=== PATIENT | female | born 1950 | race Caucasian/White ===

== ENCOUNTER → 2016-11-03 | Outpatient (CLI) | payer MEDICARE, BC | LOC: GMAB 14:09 | PROVIDERS: ATTEND Family Medicine | DX: R30.0 Dysuria (principal); E03.9 Hypothyroidism, unspecified ==

== ENCOUNTER → 2016-12-29 | Outpatient (CLI) | payer MEDICARE ==
--- NOTE | 2017-01-04 15:46 | MAM ---
EXAM DESCRIPTION: Diagnostic Mammo,Left CLINICAL HISTORY: 66 years, Female, 6 MOS F/U COMPARISON: April 13, 2016 screening mammogram in April 30, 2016 diagnostic mammogram FINDINGS: CAD used. Scattered fibroglandular tissue stable upper posterior lateral predominantly distribution. Areas increased density lowers sensitivity. The scattered microcalcifications identified in April 2016 examination are evaluated with magnification views. These appear about the same and not significantly different IMPRESSION: Probably benign mammogram. Stable appearance of microcalcifications in the outer left breast. Recommend reevaluation in about four months which would correspond to time of annual screening. Suggest that this be a bilateral diagnostic screening mammogram. Category three probably benign: Short-term follow-up recommended in about four months Electronically signed by: Terrell Schaffer MD 01/04/2017 2:42 PM CDT
== END ==
LOC: MAMMO 10:46
PROVIDERS: ATTEND Family Medicine
DX: R92.8 Other abnormal and inconclusive findings on diagnostic imaging of breast (principal)
CPT/HCPCS: 77065; G0206

== ENCOUNTER 2017-02-14 21:58 | Emergency (ER) | payer MEDICARE ==
--- NOTE | 2017-02-14 22:10 | ED.PDOC ---
History of Present Illness - General Chief Complaint: Neuro Symptoms/Deficits Stated Complaint: AMS Time Seen by Provider: 02/14/17 22:08 Source: RN notes reviewed, EMS notes reviewed Exam Limitations: clinical condition, physical impairment - History of Present Illness Initial Comments: Fernanda Vallejo 66 y/o female on chronic pain medication for chronic pain syndrome was found by ems at her house kitchen unresponsive covered with feces after they were called up by a family member that she have not responded to phone calls. According to niece she was in her usual normal state last when she visited her doing her normal activities and was left by herself . Today the transport truck driver out of town called up her niece regarding the situation then ems was called.Also fire dept.got called after doors to the house are locked and opened it. Timing/Duration: other - 3 days Improving Factors: nothing Worsening Factors: nothing Associated Symptoms: other - agitated and screaming Allergies/Adverse Reactions: Allergies NO KNOWN ALLERGY Allergy (Verified 02/14/17 22:16) Home Medications: Ambulatory Orders Atorvastatin Calcium [Lipitor] 20 mg PO DAILY 02/15/17 Baclofen 20 mg PO PRN PRN 02/15/17 BuPROPion XL [Wellbutrin XL] 150 mg PO DAILY 02/15/17 Coenzyme Q10 (Ubidecarenone) [Coq-10] 200 mg PO DAILY 02/15/17 Coenzyme Q10 (Ubidecarenone) [Coq-10] 400 mg PO BEDTIME 02/15/17 Cranberry (Vaccinium Macrocarp [Cranberry Concentrate] 500 mg PO BEDTIME Flaxseed (Linseed) [Flaxseed Oil] 1 cap PO DAILY 02/15/17 Gabapentin 300 mg PO QID 02/15/17 Ginkgo Biloba 120 mg PO BID 02/15/17 Fuiiguwtfrc-Msdzftfbmjj-Ovf C- [Glucosamine Chondroitin 1] 1 cap PO BID Hydrochlorothiazide 25 mg PO DAILY 02/15/17 Levothyroxine Sodium [Synthroid] 88 mcg PO DAILY 02/15/17 Lisinopril 10 mg PO BEDTIME 02/15/17 Melatonin 30 mg PO BEDTIME 02/15/17 Meloxicam 15 mg PO DAILY 02/15/17 Metoprolol Succinate [Metoprolol Succinate ER] 25 mg PO DAILY 02/15/17 Misc Natural Products [Adrenal] 80 mg PO DAILY 02/15/17 Nitroglycerin 0.4 mg Tab [Nitrostat] 0.4 mg SL PRN PRN 02/15/17 Phenytoin Sodium Extended 100 mg PO PRN PRN 02/15/17 Potassium Chloride [K-Tab] 10 meq PO DAILY 02/15/17 Pregabalin [Lyrica] 50 mg PO DAILY@0700 02/15/17 Primidone 100 mg PO BEDTIME 02/15/17 Progesterone Micronized [Progesterone] 100 mg PO DAILY 02/15/17 Spironolactone 100 mg PO DAILY 02/15/17 Tapentadol HCl [Nucynta ER] 100 mg PO BID 02/15/17 Tapentadol HCl [Nucynta] 50 mg PO PRN PRN 02/15/17 Thyroid [Nature-Throid] 81.25 mg PO DAILY 02/15/17 Valerian (Valeriana Officinali [Valerian Root Plus] 3 cap PO BEDTIME 02/15/17 Review of Systems - Review of Systems Unable to Obtain Due To: clinical condition - mental state Past Medical History (General) - Patient Medical History Hx Seizures: Yes - per spouse Hx Other PMH: Yes - chronic pain Surgical History: other - gastic bypass,right shoulder,hysterectomy,lumbar spine Family Medical History - Family History Mother Family History: Unknown Physical Exam - Physical Exam General Appearance: Other - agitated ,screaming ,non verbal,feces,unkempt Eye Exam: bilateral other - pupils equal reactive ENT Exam: normal ENT inspection, TMs normal, pharynx normal Neck: non-tender, supple Respiratory: chest non-tender, lungs clear, normal breath sounds, no respiratory distress Cardiovascular/Chest: normal peripheral pulses, regular rate, rhythm, no murmur Peripheral Pulses: radial,right: 2+, radial,left: 2+ Gastrointestinal/Abdominal: normal bowel sounds, soft, no organomegaly Back Exam: normal inspection, no vertebral tenderness Mental Status: unresponsive, other - screaming /agitated grader patrol Exam: PERRL Skin Exam: normal color, warm/dry, other - multiple skin bruising and abrasions Comments: sarah coma scale-pain 2 v-3 p-5 =10 Progress - Progress Progress: 02/15/17 02:30 Vital Signs - 8 hr 06/07/2302/14/17 02/15/17 21:58 23:41 00:46 Temperature 98.4 F Pulse Rate [ 76 72 80 monitor] Respiratory 20 18 18 Rate Blood Pressure 121/79 140/51 114/70 [Left Arm] O2 Sat by Pulse 100 96 94 L Oximetry 02/15/17 01:34 Temperature Pulse Rate [ 102 H monitor] Respiratory 16 Rate Blood Pressure 129/58 [Left Arm] O2 Sat by Pulse 100 Oximetry 02/14/17 22:15 EKG STAT 02/14/17 23:20 BLOOD CULTURE Stat 02/15/17 01:29 CTA Chest [CT] Stat 02/15/17 01:30 Cervical Spine [CT] Stat Knee,Right 2 or More Views [RAD] Stat Laboratory Results WBC 12.7 K/mm3 (4.8-10.8) H 02/14/17 23:20 RBC 4.91 M/mm3 (4.20-5.40) 02/14/17 23:20 Hgb 14.7 gm/dL (12.0-16.0) 02/14/17 23:20 Hct 45.0 % (36.0-47.0) 02/14/17 23:20 MCV 91.6 fl (81.0-99.0) 02/14/17 23:20 MCH 30.0 pg (27.0-31.0) 02/14/17 23:20 MCHC 32.7 g/dL (33.0-37.0) L 02/14/17 23:20 RDW 12.9 % (11.5-14.5) 02/14/17 23:20 Plt Count 178 K/mm3 (130-400) 02/14/17 23:20 MPV 9.6 fl (7.40-10.4) 02/14/17 23:20 Absolute Neuts (auto) 11.00 K/uL (1.8-6.8) H 02/14/17 23:20 Absolute Lymphs (auto) 0.80 K/uL (1.0-3.4) L 02/14/17 23:20 Absolute Monos (auto) 0.80 K/uL (0.2-0.8) 02/14/17 23:20 Absolute Eos (auto) 0.00 K/uL (0.0-0.4) 02/14/17 23:20 Absolute Basos (auto) 0.00 K/uL (0.0-0.1) 02/14/17 23:20 Neutrophils % 87.0 % (42.0-78.0) H 02/14/17 23:20 Lymphocytes % 6.3 % (20.0-50.0) L 02/14/17 23:20 Monocytes % 6.1 % (2.0-9.0) 02/14/17 23:20 Eosinophils % 0.2 % (1.0-5.0) L 02/14/17 23:20 Basophils % 0.4 % (0.0-2.0) 02/14/17 23:20 PT 11.5 SECONDS (9.4-12.5) 02/14/17 23:20 INR 1.020 02/14/17 23:20 PTT (SP) 28.8 SECONDS (25.1-36.5) 02/14/17 23:20 D-Dimer, Quantitative 1092 ng/mL (0-230) H* 02/14/17 23:20 Sodium 141 mmol/L (135-145) 02/14/17 23:20 Potassium 4.2 mmol/L (3.6-5.0) 02/14/17 23:20 Chloride 110 mmol/L (101-111) 02/14/17 23:20 Carbon Dioxide 23 mmol/L (21-31) 02/14/17 23:20 Anion Gap 12.2 (12-18) 02/14/17 23:20 BUN 19 mg/dL (7-18) H 02/14/17 23:20 Creatinine 0.77 mg/dL (0.6-1.3) 02/14/17 23:20 BUN/Creatinine Ratio 24.7 (10-20) H 02/14/17 23:20 Random Glucose 134 mg/dL (70-105) H 02/14/17 23:20 Serum Osmolality 285.5 mOsm/L (275-295) 02/14/17 23:20 Lactic Acid 1.9 mmol/L (0.5-2.2) 02/14/17 23:10 Calcium 9.1 mg/dL (8.4-10.2) 02/14/17 23:20 Magnesium 1.9 mg/dL (1.8-2.5) 02/14/17 23:20 Total Bilirubin 0.8 mg/dL (0.2-1.0) 02/14/17 23:20 Direct Bilirubin 0.2 mg/dL (0-0.2) 02/14/17 23:20 Indirect Bilirubin 0.6 mg/dL (0.2-0.8) 02/14/17 23:20 AST 75 IU/L (10-42) H 02/14/17 23:20 ALT 34 IU/L (10-60) 02/14/17 23:20 Alkaline Phosphatase 147 IU/L (42-121) H 02/14/17 23:20 Creatine Kinase 2348 IU/L (26-140) H* 02/14/17 23:20 CK-MB (CK-2) 34.8 ng/mL (0.0-4.4) H* 02/14/17 23:20 CK-MB (CK-2) % 1.48 % (0.0-4.3) 02/14/17 23:20 Troponin I < 0.02 ng/mL (0.01-0.05) 02/14/17 23:20 B-Natriuretic Peptide 115.0 pg/ml (0-100) H 02/14/17 23:20 Serum Total Protein 6.8 gm/dL (6.4-8.2) 02/14/17 23:20 Albumin 3.9 g/dl (3.2-5.5) 02/14/17 23:20 Urine Color Yellow (Yellow) 02/14/17 22:25 Urine Appearance Clear (Clear) 02/14/17 22:25 Urine pH 5.5 (4.5-7.8) 02/14/17 22:25 Ur Specific [place] 1.010 (1.005-1.030) 02/14/17 22:25 Urine Protein Negative mg/dL 02/14/17 22:25 Urine Glucose (UA) Negative mg/dL (Negative) 02/14/17 22:25 Urine Ketones 15 mg/dL (NEGATIVE) H 02/14/17 22:25 Urine Blood Negative (Negative) 02/14/17 22:25 Urine Nitrite Negative 02/14/17 22:25 Urine Bilirubin Negative (NEGATIVE) 02/14/17 22:25 Urine Urobilinogen 0.2 mg/dL (0.2-1.0) 02/14/17 22:25 Ur Leukocyte Esterase Negative (Negative) 02/14/17 22:25 Urine RBC 0-1 /hpf 02/14/17 22:25 Urine WBC 0-1 /hpf 02/14/17 22:25 Ur Epithelial Cells 0-1 /hpf 02/14/17 22:25 Urine Bacteria 0 02/14/17 22:25 Salicylates mg/dL (0-29.9) 02/14/17 23:20 Urine Opiates Screen Negative ng/mL (2000) 02/14/17 23:20 Acetaminophen < 10.0 ug/mL (10.0-30.0) L 02/14/17 23:20 Urine Barbiturates Positive ng/mL (200) H 02/14/17 23:20 Phenytoin < 0.5 ug/mL (10.0-20.0) L 02/14/17 23:20 Ur Phencyclidine Scrn Negative ng/mL (25) 02/14/17 23:20 U Amphetamin/Meth Scrn Negative ng/mL (1000) 02/14/17 23:20 U Benzodiazepines Scrn Negative ng/mL (200) 02/14/17 23:20 U Cocaine Metab Screen Negative ng/mL (300) 02/14/17 23:20 U Cannabinoids Screen Negative ng/mL (50) 02/14/17 23:20 Ethyl Alcohol < 5.80 mg/dL (0-79) 02/14/17 23:20 - EKG/XRAY/CT EKG: Sinus, no ST T wave changes Comments: Heart rate 77 XRAY: humerus left-no fracture - no fracture/radiologist CT: CTA-no PE pulmonary main artery;c-spine-no fracture CT Ordered: Yes - head-no acute abormalities Departure - Departure Clinical Impression: Chronic pain following surgery or procedure, Abrasions of multiple sites Altered mental status Qualifiers: Altered mental status type: coma Coma depth: Sarah coma 9-12 Qualified Code(s ): R40.242 - [place] coma scale score 9-12 Overdose Qualifiers: Encounter type: initial encounter Injury intent: undetermined intent Qualified Code(s): T50.904A - Poisoning by unspecified drugs, medicaments and biological substances, undetermined, initial encounter Rhabdomyolysis Qualifiers: Rhabdomyolysis type: non-traumatic Qualified Code(s): M62.82 - Rhabdomyolysis Time of Disposition: 04:54 - D/W Dr. Vikas Gardiner -ER MD FORBES Disposition: Transfer to Hospital Condition: Fair Referrals: Javier Varghese MD [Primary Care Provider] - 1-2 Weeks Home Medications: Ambulatory Orders Atorvastatin Calcium [Lipitor] 20 mg PO DAILY 02/15/17 Baclofen 20 mg PO PRN PRN 02/15/17 BuPROPion XL [Wellbutrin XL] 150 mg PO DAILY 02/15/17 Coenzyme Q10 (Ubidecarenone) [Coq-10] 200 mg PO DAILY 02/15/17 Coenzyme Q10 (Ubidecarenone) [Coq-10] 400 mg PO BEDTIME 02/15/17 Cranberry (Vaccinium Macrocarp [Cranberry Concentrate] 500 mg PO BEDTIME Flaxseed (Linseed) [Flaxseed Oil] 1 cap PO DAILY 02/15/17 Gabapentin 300 mg PO QID 02/15/17 Ginkgo Biloba 120 mg PO BID 02/15/17 Whxozkvutqd-Cmbdwvdjysy-Uod C- [Glucosamine Chondroitin 1] 1 cap PO BID Hydrochlorothiazide 25 mg PO DAILY 02/15/17 Levothyroxine Sodium [Synthroid] 88 mcg PO DAILY 02/15/17 Lisinopril 10 mg PO BEDTIME 02/15/17 Melatonin 30 mg PO BEDTIME 02/15/17 Meloxicam 15 mg PO DAILY 02/15/17 Metoprolol Succinate [Metoprolol Succinate ER] 25 mg PO DAILY 02/15/17 Misc Natural Products [Adrenal] 80 mg PO DAILY 02/15/17 Nitroglycerin 0.4 mg Tab [Nitrostat] 0.4 mg SL PRN PRN 02/15/17 Phenytoin Sodium Extended 100 mg PO PRN PRN 02/15/17 Potassium Chloride [K-Tab] 10 meq PO DAILY 02/15/17 Pregabalin [Lyrica] 50 mg PO DAILY@0700 02/15/17 Primidone 100 mg PO BEDTIME 02/15/17 Progesterone Micronized [Progesterone] 100 mg PO DAILY 02/15/17 Spironolactone 100 mg PO DAILY 02/15/17 Tapentadol HCl [Nucynta ER] 100 mg PO BID 02/15/17 Tapentadol HCl [Nucynta] 50 mg PO PRN PRN 02/15/17 Thyroid [Nature-Throid] 81.25 mg PO DAILY 02/15/17 Valerian (Valeriana Officinali [Valerian Root Plus] 3 cap PO BEDTIME 02/15/17
[2017-02-14] MEDS ORDERED: SODIUM CHLORIDE 0.9% 500ML 500 ML IVS ONE (22:16)
[2017-02-14 22:53] VITALS: TEMP 98.4
[2017-02-14] MEDS ORDERED: HALOPERIDOL LACTATE INJ 5 MG/ML VIAL IM ONE ×2 (23:14→23:17)
[2017-02-14] MEDS ORDERED: diphenhydrAMINE HCL 50 MG/ML VIAL IM ONE (23:14)
[2017-02-14] MEDS ORDERED: diphenhydrAMINE HCL 50 MG/ML VIAL ONE (23:17)
--- NOTE | 2017-02-14 23:27 | RAD ---
Procedure: XR PELVIS 3 OR MORE VIEWS Exam Date: 02/14/2017 Ordering Provider: Domingo Wise Clinical Indication: Pelvic pain Comparison: 08/12/2008 FINDINGS: There is no fracture or dislocation. Articular surface of each hip is preserved. The sacroiliac joints are intact bilaterally. The pubic symphysis is normal. There are no lytic or sclerotic lesions. There are no suspicious calcifications. Pelvic phleboliths. Levocurvature of the lumbar spine. Impression: 1. No acute findings. Electronically signed by: Terrell Lentz MD 02/14/2017 11:27 PM CDT
--- NOTE | 2017-02-14 23:28 | RAD ---
EXAM: Single view chest. INDICATION: Chest pain. COMPARISON: Chest x-ray: 07/06/2014. FINDINGS: Cardiac silhouette: At the upper limit of normal in size Deedee: Unremarkable. Lobar consolidation: None. Pleural effusion: None. Pneumothorax: None. Other: None. Bones: Changes of a right shoulder arthroplasty Other: None. IMPRESSION: 1. No acute cardiopulmonary process. Electronically signed by: Acosta Burks MD 02/14/2017 11:29 PM CDT Workstation: [id number]
--- NOTE | 2017-02-14 23:29 | RAD ---
EXAM: Two view(s) of the left humerus. INDICATION: Pain. COMPARISON: None. FINDINGS: No acute fracture or dislocation. No large soft tissue swelling. IMPRESSION: 1. No acute fracture. Electronically signed by: Acosta Burks MD 02/14/2017 11:30 PM CDT Workstation: [id number]
--- NOTE | 2017-02-14 23:47 | CT ---
EXAM: CT head without contrast. INDICATION: Headache. TECHNIQUE: Contiguous axial CT images of the brain. Intravenous contrast: Absent. DLP 773 mGy-cm. This exam was performed according to our departmental dose-optimization program, which includes automated exposure control, adjustment of the mA and/or kV according to patient size and/or use of iterative reconstruction technique. COMPARISON: 08/11/2016. FINDINGS: Subcutaneous: Unremarkable. No acute intracranial hemorrhage. No midline shift. No mass effect. Ventricles: No hydrocephalus. Rose-white differentiation preserved. Paranasal sinuses/mastoid air cells: Visualized portions are aerated. Bones/orbits: Visualized portions are unremarkable. IMPRESSION: 1. No CT evidence of acute intracranial hemorrhage. Electronically signed by: Acosta Burks MD 02/14/2017 11:47 PM CDT Workstation: [id number]
[2017-02-15] MEDS ORDERED: SODIUM CHLORIDE 0.9% 1000ML 1,000 ML IVS ONE ×2 (01:14→01:16)
[2017-02-15] MEDS ORDERED: diphenhydrAMINE HCL 50 MG/ML VIAL IM ONE (02:47)
[2017-02-15] MEDS ORDERED: HALOPERIDOL LACTATE INJ 5 MG/ML VIAL IM ONE (02:48)
--- NOTE | 2017-02-15 02:54 | RAD ---
Procedure: XR KNEE 1-2 VIEWS Exam Date: 02/15/2017 Ordering Provider: Domingo Wise Clinical Indication: bruising Comparison: None FINDINGS: There is no fracture or dislocation. The articular surfaces of the right knee are intact. There is no significant joint space narrowing. No lytic or sclerotic lesions. No joint effusion. No subcutaneous gas. IMPRESSION: 1. No acute findings in the right knee. Electronically signed by: Terrell Lentz MD 02/15/2017 2:54 AM CDT
--- NOTE | 2017-02-15 03:28 | CT ---
Procedure: CT CHEST ANGIOGRAPHY WITH IV CONTRAST Exam Date: 02/15/2017 Ordering Provider: Domingo Wise Clinical Indication: elevated d-dimer ;ams Comparison: None Technique: Using a multislice scanner, sequential axial imaging was obtained in the thorax from the level of the thoracic inlet through the lung bases after intravenous contrast administration. The contrast bolus was timed to evaluate the pulmonary arteries for thrombus. MIP coronal and sagittal reformatted images were obtained. This exam was performed according to our departmental dose optimization program which includes use of automated exposure control, adjustment of the mA and/or kV according to patient size and/or use of iterative reconstruction technique. Findings: There is poor bolus opacification of the pulmonary arteries. Within these confines, there are no emboli in the main pulmonary arteries. The lobar, segmental and subsegmental pulmonary arteries are not adequately evaluated. Lungs and large airways: Central airways are patent. No focal lung consolidation. There is evidence of prior granulomatous disease. 3 mm nodule in the lingula. Mediastinum and althea: No lymphadenopathy Pleura: No pleural effusion. No pneumothorax. Heart and great vessels: Borderline cardiomegaly. No pericardial effusion. No aortic aneurysm. Chest wall, lower neck, axillae: No axillary lymphadenopathy. Upper abdomen: No acute abnormalities in the visualized upper abdomen. Bones: Nonacute. Remote right-sided rib fractures. IMPRESSION: 1. There is poor bolus opacification of the pulmonary arteries. Within these confines, there are no emboli in the main pulmonary arteries. The lobar, segmental and subsegmental pulmonary arteries are not adequately evaluated. 2. No focal lung consolidation. 3. 3 mm nodule in the lingula. 2017 Fleischner Society Recommendations for Single Solid Lung Nodule Follow-Up based on size (average of long- and short-axis diameters) <6 mm Low-Risk Patient: No routine follow-up <6 mm High-Risk Patient: Optional CT at 12 months Electronically signed by: Terrell Lentz MD 02/15/2017 3:28 AM CDT
--- NOTE | 2017-02-15 03:40 | CT ---
Procedure: CT CERVICAL SPINE WITHOUT IV CONTRAST Exam Date: 02/15/2017 Ordering Provider: Domingo Wise Clinical Indication: ams Comparison: None Technique: Using a multislice scanner, sequential axial imaging was obtained from the skull base to the T1 level. 2-D sagittal and coronal reconstruction images were obtained. This exam was performed according to our departmental dose optimization program which includes use of automated exposure control, adjustment of the mA and/or kV according to patient size and/or use of iterative reconstruction technique. Findings: There is no acute fracture or subluxation. Multilevel facet arthropathy, intervertebral disc space narrowing and endplate osteophyte formation. Moderate to severe neural foraminal narrowing on the left at C5-C6 and C6-C7. Moderate to severe neural foraminal narrowing on the right at C6-C7. Moderate central spinal stenosis at C4-C5 and C5-C6. There is no lytic or sclerotic lesion. The prevertebral soft tissues are normal. IMPRESSION: 1. No acute fracture or subluxation of the cervical spine. 2. Moderate central spinal stenosis at C4-C5, C5-C6 and C6-C7. 3. Moderate to severe neural foraminal narrowing bilaterally at C6-C7. 4. Moderate to severe neural foraminal narrowing on the left at C5-C6. Electronically signed by: Terrell Lentz MD 02/15/2017 3:40 AM CDT
[2017-02-15] MEDS ORDERED: DEX 5% W/NACL 0.45% 1000ML 1,000 ML IVS PRN (04:03)
[2017-02-15] MEDS ORDERED: SODIUM BICARBONATE VIAL 50 MEQ/50 ML VIAL IV ONE (04:04)
[2017-02-15] MEDS ORDERED: NALOXONE HCL INJ 0.4 MG/ML VIAL IV ONE (04:14)
[2017-02-15] MEDS ORDERED: FLUMAZENIL 0.1 MG/ML VIAL IV ONE (04:14)
[2017-02-15 05:15] VITALS: BP 89/45; O2SAT 98
== END 2017-02-15 05:30 | disposition short-term general hospital (02) ==
LOC: ER 21:58
DX: T50.904A Poisoning by unspecified drugs, medicaments and biological substances, undetermined, initial encounter (principal); R40.2422 Glasgow coma scale score 9-12, at arrival to emergency department; G89.4 Chronic pain syndrome; M62.82 Rhabdomyolysis; T14.8 Other injury of unspecified body region; Z98.84 Bariatric surgery status; Y92.000 Kitchen of unspecified non-institutional (private) residence as the place of occurrence of the external cause; Z79.899 Other long term (current) drug therapy
CPT/HCPCS: 36415; 36416; 70450; 71010; 71275; 72125; 72190; 73060; 73560; 80048; 80076; 80185; 80307; 80320; 80329; 81001; 82550; 82553; 82948; 83605; 83880; 84484; 85025; 85379; 85610; 85730; 87040; 93005; 96372; 96374; 96375; 99285; J1200; J1630; J2060; J2310; J7030; J7040; J7799

== ENCOUNTER → 2017-03-08 | Outpatient (CLI) | payer MEDICARE | END | disposition home or self-care (01) | LOC: RESP 16:05 | PROVIDERS: ATTEND Physician Assistant | DX: R00.2 Palpitations (principal) ==

== ENCOUNTER → 2017-06-22 | Outpatient (CLI) | payer MEDICARE ==
--- NOTE | 2017-06-24 11:16 | MAM ---
EXAM DESCRIPTION: 3D Diagnostic, Bilateral : Digital Mammography. CLINICAL HISTORY: 66 years Female INCONCLUSIVE FINDINGS ON DX IMAGING . No complaints.. Remote family history of ovarian cancer. Postmenopausal. Currently on HRT. COMPARISON: 2-D digital screening bilateral studies 04/13/2016 and 01/02/2015.. No prior reports available. Reports from prior examinations also reviewed. Report from prior examination also reviewed. TECHNIQUE: Bilateral CC, LM, and MLO projection full-field images, 3-D tomosynthesis digital mammographic technique. Also bilateral synthesized CC/ MLO full-field images. CAD not utilized. FINDINGS: The breast parenchymal density pattern is: Scattered areas of fibroglandular density. No skin thickening or nipple retraction heterogeneous calcifications in the region approximately 3 cc at the 300 clock position of the anterior third of the left breast. Associated with a larger calcifications. No associated mass/density. No significant change since December 2014. No focal, stellate mass or density, focal asymmetry , and no suspicious microcalcifications bilaterally. Stable mammograms compared to prior study, taking into account differences in mammographic technique IMPRESSION: BI-RADS CATEGORY: 2 - BENIGN FINDINGS. FOLLOW UP: Return to routine digital bilateral screening, one year interval from June 2017. Written communication explaining the IMPRESSION and follow-up, will be mailed to the patient and referring health care provider. According to the [employer], yearly mammograms are recommended starting at age 40 and continuing as long as a woman is in good health. Any breast change noted on a breast self-exam should be reported promptly to the patient's healthcare provider. Breast MRI is recommended for women with an approximately 20-25% or greater lifetime risk of breast cancer, including women with a strong family history of breast or ovarian cancer and women who have been treated for Hodgkin's disease. A negative mammographic report should not delay tissue diagnosis in patients with significant clinical history or physical findings. Extremely dense breast tissue limits the sensitivity of digital mammography. Electronically signed by: Jeff Ridley MD 06/24/2017 11:14 AM CDT
== END ==
LOC: MAMMO 11:39
PROVIDERS: ATTEND Family Medicine
DX: R92.8 Other abnormal and inconclusive findings on diagnostic imaging of breast (principal)
CPT/HCPCS: G0204; G0279

== ENCOUNTER → 2017-08-19 | Outpatient (CLI) | payer MEDICARE | END | disposition home or self-care (01) | LOC: GMAB 10:59 | PROVIDERS: ATTEND Family Medicine | DX: E03.9 Hypothyroidism, unspecified (principal) ==

== ENCOUNTER → 2018-01-26 | Outpatient (CLI) | payer MEDICARE | LOC: GMAB 16:40 | PROVIDERS: ATTEND Family Medicine | DX: E03.9 Hypothyroidism, unspecified (principal) ==

== ENCOUNTER → 2018-09-22 | Outpatient (CLI) | payer MEDICARE ==
--- NOTE | 2018-09-23 16:50 | MAM ---
EXAM DESCRIPTION: 3D Screening BILATERAL : Digital Mammography. CLINICAL HISTORY: 68 years Female SCREENING . No complaints or personal history or remote history of breast cancer. Remote history of ovarian cancer. Childbirth. Postmenopausal over 30 years. Currently on HRT. Lifetime risk of developing breast cancer (Tyrer-Cuzick model)(%): 6.4. COMPARISON: Bilateral diagnostic digital breast tomosynthesis 06/12/2017. . TECHNIQUE: Bilateral CC and MLO projection full-field images, digital tomosynthesis mammographic technique. Bilateral digital 2-D full-field MLO images. CAD not available for tomosynthesis or 2-D images. FINDINGS: The breast parenchymal density pattern is: Scattered areas of fibroglandular density. No skin thickening or nipple retraction. Right axillary lymph node. Bilateral solitary calcifications. Retroareolar calcifications on the left. Again noted are numerous calcifications in the large group in the junction of the anterior mid third of the medial left breast at approximately 3:00 position the number of calcifications has increased since the prior study. Some of these calcifications are linear and similar to "needle points." No new focal, stellate mass or density, focal asymmetry , and no suspicious microcalcifications in the right breast. Taking into account, differences in mammographic technique. IMPRESSION: BI-RADS CATEGORY: 0 - INCOMPLETE- Need additional imaging evaluation. FOLLOW-UP: Recall for additional imaging: Orthogonal 2-D spot magnification imaging of the region of interest in the middle third of the left breast and orthogonal 3-D full-field images. Targeted left breast ultrasound if indicated by diagnostic images.. Written communication concerning the IMPRESSION and Follow-up, will be mailed to the patient and referring health care provider. Electronically signed by: Jeff Ridley MD 09/23/2018 4:49 PM [facility]
== END ==
LOC: MAMMO 16:22
PROVIDERS: ATTEND Family Medicine
DX: Z12.31 Encounter for screening mammogram for malignant neoplasm of breast (principal)

== ENCOUNTER → 2018-10-19 | Outpatient (CLI) | payer MEDICARE ==
--- NOTE | 2018-10-20 12:09 | US ---
EXAM DESCRIPTION: Breast,Left: Ultrasound CLINICAL HISTORY: 68 yearsFemaleABNORMAL MAMMO COMPARISON: Left breast diagnostic digital tomosynthesis on the same visit. Bilateral screening digital breast tomosynthesis 09/22/2018. TECHNIQUE: Transcutaneous scanning of the left breast utilizing grigsby-scale and Doppler modes. Scanning performed by the cancer registry coordinator and Dr. Ridley. FINDINGS: Scanning of the lateral left breast, from the nipple, to 5 cm posterior. Heterogeneous fibroglandular and fatty echotexture. Hypoechoic to anechoic nodule in the anterior breast at the 2:00 position, 5 cm from the nipple. Circumscribed and minimally lobulated margins with dimensions 4.8 x 2.3 mm. Nonvascular. No dominant solid mass. No parenchymal edema or large calcifications. No overlying skin changes. IMPRESSION: 1. Bi-Rads Category 3: Probably Benign Findings. 2. Please refer to digital diagnostic tomosynthesis left breast examination and report on this visit. The FINDINGS and the FOLLOW-UP plan were reviewed in person with the patient after the examination. Written communication explaining the IMPRESSION and FOLLOW-UP will be mailed to the patient and referring care provider. Electronically signed by: Jeff Ridley MD 10/20/2018 12:06 PM [employer]
--- NOTE | 2018-10-20 12:24 | MAM ---
EXAM DESCRIPTION: 3D Diagnostic, Left: Digital Mammography CLINICAL HISTORY: 68 yearsFemaleABNORMAL MAMMO increasing microcalcifications in the anterior left breast. COMPARISON: Digital screening bilateral breast tomosynthesis 09/22/2018. Targeted left breast ultrasound included with this examination. TECHNIQUE: Left LM projection full-field images, digital mammographic tomosynthesis technique. Digital spot magnification anterior left breast CC and LM projections. CAD not utilized. FINDINGS: The breast parenchymal density pattern is: Scattered areas of fibroglandular density. No skin thickening or nipple retraction multiple microcalcifications mostly solitary and in a region approximately 2:00 to 4:00 lateral left breast 4 to 5 cm from the nipple. One small group of microcalcifications, more anterior, but not definitely abnormal. Vascular calcifications also in the adjacent tissues. Ultrasound: Scanning of the lateral left breast, from the nipple, to 5 cm posterior. Heterogeneous fibroglandular and fatty echotexture. Hypoechoic to anechoic nodule in the anterior breast at the 2:00 position, 5 cm from the nipple. Circumscribed and minimally lobulated margins with dimensions 4.8 x 2.3 mm. Nonvascular. No dominant solid mass. No parenchymal edema or large calcifications. No overlying skin changes. IMPRESSION: BI-RADS CATEGORY: 3 - PROBABLY BENIGN. Management: Short interval (6-month) follow-up diagnostic digital imaging left breast and continued surveillance targeted left breast ultrasound. The FINDINGS and the FOLLOW-UP plan were reviewed in person with the patient after the examination. Written communication explaining the IMPRESSION and FOLLOW-UP will be mailed to the patient and referring care provider. Electronically signed by: Jeff Ridley MD 10/20/2018 12:22 PM [facility]
== END ==
LOC: MAMMO 13:00
PROVIDERS: ATTEND Family Medicine
DX: R92.2 Inconclusive mammogram (principal)
CPT/HCPCS: 76641; 77065; G0279

== ENCOUNTER → 2018-12-20 | Outpatient (CLI) | payer MEDICARE | LOC: GMAE 10:33 | PROVIDERS: ATTEND Family Medicine | DX: E03.9 Hypothyroidism, unspecified (principal) ==

== ENCOUNTER → 2019-03-06 | Outpatient (CLI) | payer MEDICARE | LOC: GMAE 15:04 | PROVIDERS: ATTEND Family Medicine | DX: R53.82 Chronic fatigue, unspecified (principal); R63.4 Abnormal weight loss; E55.9 Vitamin D deficiency, unspecified; E53.8 Deficiency of other specified B group vitamins ==

== ENCOUNTER → 2019-03-21 | Outpatient (CLI) | payer MEDICARE | LOC: GMAE 14:38 | PROVIDERS: ATTEND Family Medicine | DX: E03.9 Hypothyroidism, unspecified (principal) ==

== ENCOUNTER → 2019-05-31 | Outpatient (CLI) | payer MEDICARE ==
--- NOTE | 2019-05-31 17:55 | MAM ---
EXAM DESCRIPTION: 3D Diagnostic, Bilateral (accession [id number]), Breast,Left (accession [id number]): Ultrasound CLINICAL HISTORY: 68 yearsFemaleABNORMAL MAMMO region of heterogeneous calcifications in the anterior middle third of the central and lateral left breast. No personal history of breast cancer. No complaints. Remote family history of ovarian cancer. Postmenopausal 30+ years. Childbirth. Going to restart Biote HRT. Lifetime risk of developing breast cancer (Tyrer-Cuzick model)(%): Not calculated COMPARISON: Bilateral screening digital breast tomosynthesis 09/22/2018. TECHNIQUE: Bilateral LM, CC, and MLO projection full-field images, digital mammographic tomosynthesis technique. Bilateral LM, CC, and MLO 2-D digital full-field images CAD not utilized. . Transcutaneous scanning of the left breast utilizing grigsby-scale and Doppler modes. Scanning performed by the commissary representative and Dr. Ridley. FINDINGS: The breast parenchymal density pattern is: Scattered areas of fibroglandular density. No skin thickening or nipple retraction again seen are heterogeneous calcifications in the lateral left breast at the junction of the middle third and anterior third. Calcifications are heterogeneous but mainly appear vascular and oriented with vessels on the CC tomosynthesis images, and stable since the prior study. Coarse calcifications bilaterally. No new focal, stellate mass or density, focal asymmetry , and no suspicious microcalcifications left breast. Ultrasound: Scanning of the left breast upper outer quadrant anterior middle third. Mixture of fibroglandular and fatty echotexture. Multiple circumscribed lymph nodes are noted hypoechoic with echogenic fatty althea. Nonvascular. Wider than tall orientation and posterior neutral acoustics. All less than 5 mm in diameter. Also cyst measuring 3.0 x 2.5 mm with circumscribed margins, nonvascular, wider than tall orientation and posterior acoustic enhancement. No dominant soft tissue mass or abnormal vascularity. IMPRESSION: BI-RADS CATEGORY: 3 - PROBABLY BENIGN. Management: Short interval (6-month) diagnostic left breast digital tomosynthesis with directed ultrasound left breast if indicated by diagnostic images.. The FINDINGS and the FOLLOW-UP plan were reviewed in person with the patient after the examination. Written communication explaining the IMPRESSION and FOLLOW-UP will be mailed to the patient and referring care provider. Electronically signed by: Jeff Ridley MD 05/31/2019 5:54 PM CDT
== END ==
LOC: MAMMO 10:49
PROVIDERS: ATTEND Family Medicine
DX: R92.2 Inconclusive mammogram (principal)
CPT/HCPCS: 76641; 77066; G0279

== ENCOUNTER → 2019-06-20 | Outpatient (CLI) | payer MEDICARE | LOC: GMAE 16:39 | PROVIDERS: ATTEND Family Medicine | DX: E03.9 Hypothyroidism, unspecified (principal) ==

== ENCOUNTER → 2019-07-21 | Outpatient (CLI) | payer MEDICARE ==
--- NOTE | 2019-07-21 13:29 | CT ---
EXAM DESCRIPTION: Lumbar Spine CLINICAL HISTORY: 68 years, Female, BACK PAIN LUMBAR REGION WITH RADICULOPATHY COMPARISON: None TECHNIQUE: Lumbar CT with thin-section axial imaging with reconstructed MPR images reviewed as well. This exam was performed according to our departmental dose-optimization program, which includes automated exposure control, adjustment of the mA and/or kV according to patient size and/or use of iterative reconstruction technique. FINDINGS: CT lumbar spine demonstrates extensive prior instrumentation of the spine posteriorly from the level of the iliac bones and S1 sacral segment through the lumbar spine and up to the midthoracic spine at approximately T6. Coronal imaging confirms S-shaped scoliosis of the spine convex to the left lower and mid lumbar spine and convex to the right in the upper lumbar and thoracolumbar junction region. On sagittal imaging multilevel disc desiccation and degeneration with vacuum phenomena is present with the only area of anterior surgical change noted at the L5-S1 disc with placement of graft material and distraction/widening of the disc space at this level with anatomic alignment. An anchoring screw in the anterior sacral promontory is present. There is partial bony fusion at T12-L1 disc space anteriorly which may be secondary to previous surgery or related to disc degenerative disease with anatomic alignment. Vacuum phenomenon at the level below and the two levels above within the narrowed disc spaces with irregular endplates is noted. At the inferior extent of fixation there are pelvic iliac screws that extend through the mid and posterior SI joint on the right into the right iliac wing and through the mid and anterior aspect of the left SI joint into the iliac wing. Additional S1 pedicle screws below the L5-S1 disc with graft material in satisfactory position are also noted. On the right there are pedicle screws at L5 and L4 as well as L2, L1, T12, T11, and T10 visualized. Additional right-sided pedicle screws are suggested on the emergency physician images from T6 through T9. On the left apical screws at all levels from L5 through T6 are evident. Visualization above the T6 level on the emergency physician images was not obtained and I am uncertain whether there are pedicle screws above this level. No evidence of hardware failure is seen. Axial imaging suggests previous posterior lateral fusion bilaterally with graft material beginning at the L1-2 level and extending to the lumbosacral junction. Previous left sided laminotomies at L4-5 and questionably at L5-S1 is noted. Partial bony fusion of the posterior elements suspected with complete maturation incomplete bony fusion of the posterior elements not yet apparent. Evaluation of disc contours is markedly limited by the extensive metal artifact. The bony spinal canal appears adequate with adequate neural foramina evident in the mid and lower lumbar spine. Moderate right neural foraminal narrowing at L2-3 is suggested on sagittal imaging. IMPRESSION: 1. Extensive prior surgery with fixation from the level of the iliac wings to at least the level of T6 with pedicle screws noted from the S1 segments to the T6 level on each side with lack of pedicle screw on the right at the L3 level. Intact vertical rods span this entire course with screws extending into each iliac wing. 2. Essentially anatomic alignment on the lateral view with the multilevel disc degeneration and narrowing and partial fusion of the disc space at T12-L1 on the left side and prior anterior interbody graft material and distraction of the disc space at L5-S1. 3. Bone graft material from the upper lumbar spine to the lumbosacral junction appears partially but incompletely fused and mature with only partial posterior lateral fusion in the lumbar spine noted. At least a left L4-5 laminotomy is identified posteriorly. 4. Adequate bony canal throughout the course of the lumbar spine and lower thoracic spine with moderate S-shaped scoliosis convex to the left in the lumbar region into the right at the thoracolumbar junction. Disc contour detail is limited by the extensive metal hardware. 5. No evidence of hardware failure noted. No evidence of vertebral collapse evident. 6. Modest narrowing of the right L2-3 neural foramen. 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
== END ==
LOC: CT 11:00
PROVIDERS: ATTEND Specialist
DX: M41.86 Other forms of scoliosis, lumbar region (principal); M51.16 Intervertebral disc disorders with radiculopathy, lumbar region; Z98.1 Arthrodesis status

== ENCOUNTER → 2019-07-24 | Outpatient (CLI) | payer MEDICARE ==
--- NOTE | 2019-07-25 16:51 | CT ---
EXAM DESCRIPTION: Thoracic Spine: Computed Tomography. CLINICAL HISTORY: 68 years Female Scoliosis COMPARISON: None Available. TECHNIQUE: Spiral, axial 2.5 x 2.5 mm scans through the thoracicspine without contrast. Coronal and sagittal 2.0 mm Reconstructions. Total Exam DLP: 460.38 mGy-cm. This exam was performed according to our departmental dose-optimization program which includes automated exposure control, adjustment of the mA and/or kV according to patient size and/or use of iterative reconstruction technique; to reduce radiation dose to as low as reasonably achievable (ALARA). FINDINGS: Posterior transpedicular screws on the right from T5 through L2 and also at L4 and L5 and S1 with additional sacral anchor screw and no hardware complications. Unilateral continuous connecting russel. Similar findings on the left except for an additional posterior transpedicular screw at L3. Also with an additional sacral anchor screw. Disc spaces are narrowed at multiple levels of the thoracic spine. Spondylosis at multiple levels particularly anterior into the left from T10 to T12; anteriorly on the right T4-T9. No compression type vertebral body fractures. No significant spondylolisthesis. Foraminal narrowing at some levels and bilaterally at T10-11. No canal stenosis at this level or other levels. Lumbar levoscoliosis and thoracolumbar dextroscoliosis. Facet arthrosis bilaterally at multiple levels, more advanced at the lower 4 disc spaces. Spondylosis C5-C6 and C6-C7 no dominant paravertebral soft tissue mass. Minimal haziness of the included lung waters. Atherosclerotic changes in the included abdominal aorta. Surgical clips in the gallbladder fossa.. IMPRESSION: Multilevel thoracolumbar posterior fusion construct for scoliosis correction. No hardware or bony complications. No compression type vertebral body fractures. Multiple levels of mild spondylosis and also facet arthrosis. Bilateral foraminal narrowing at some levels, especially T10-T11. No canal stenosis at this level. Electronically signed by: Jeff Ridley MD 07/25/2019 4:50 PM INCIDENT COORDINATOR
== END | disposition home or self-care (01) ==
LOC: CT 14:00
PROVIDERS: ATTEND Specialist
DX: M41.85 Other forms of scoliosis, thoracolumbar region (principal); M54.16 Radiculopathy, lumbar region; M41.86 Other forms of scoliosis, lumbar region

== ENCOUNTER → 2019-09-27 | Outpatient (CLI) | payer MEDICARE | LOC: GMAE 11:42 | PROVIDERS: ATTEND Family Medicine | DX: E53.8 Deficiency of other specified B group vitamins (principal); E56.9 Vitamin deficiency, unspecified; E55.9 Vitamin D deficiency, unspecified; D50.9 Iron deficiency anemia, unspecified; E03.9 Hypothyroidism, unspecified; Z98.84 Bariatric surgery status ==

== ENCOUNTER → 2019-12-25 | Outpatient (CLI) | payer MEDICARE ==
--- NOTE | 2019-12-26 17:23 | MAM ---
EXAM DESCRIPTION: 3D Diagnostic, Left: Digital Mammography CLINICAL HISTORY: 69 yearsFemale6 MONTH FOLLOW UP large group of microcalcifications left breast.. . No personal history of breast cancer. Remote family history of ovarian cancer benign breast cancer. Menarche age unknown. No childbirth. Menopause age 46. Currently on HRT Lifetime risk of developing breast cancer (Tyrer-Cuzick model)(%): 5.9. COMPARISON: Bilateral diagnostic digital breast tomosynthesis May 2019... TECHNIQUE: Left breast LM, CC, and MLO projection full-field images, digital mammographic tomosynthesis technique. Bilateral 2-D digital full-field MLO images. LM, CC, and MLO projections. Spot digital mammographic dictation images of the central left breast CC and LM projections. CAD available for 2-D images. FINDINGS: The breast parenchymal density pattern is: Scattered areas of fibroglandular density. No skin thickening or nipple retraction again noted are large groups of heterogeneous microcalcifications along with larger eggshell calcifications in the anterior third of the left breast abutting the posterior nipple line and the lateral breast at the 2:00 to 3:00 sectors. Calcifications are stable. No new focal, stellate mass or density, focal asymmetry , and no suspicious microcalcifications right breast. IMPRESSION: BI-RADS CATEGORY: 3 - PROBABLY BENIGN. Management: Short interval (6-month) diagnostic left breast mammographic follow-up. Routine 12 month follow-up right breast.. The FINDINGS and the FOLLOW-UP plan were reviewed in person with the patient after the examination. Written communication explaining the IMPRESSION and FOLLOW-UP will be mailed to the patient and referring care provider. Electronically signed by: Jeff Ridley MD 12/26/2019 5:21 PM CDT
== END ==
LOC: MAMMO 15:10
PROVIDERS: ATTEND Family Medicine
DX: R92.2 Inconclusive mammogram (principal)
CPT/HCPCS: 77065; G0279

== ENCOUNTER → 2019-12-26 | Outpatient (CLI) | payer MEDICARE | LOC: GMAE 15:10 | PROVIDERS: ATTEND Family Medicine | DX: E03.9 Hypothyroidism, unspecified (principal); I10 Essential (primary) hypertension; E78.2 Mixed hyperlipidemia ==

== ENCOUNTER → 2020-06-03 | Outpatient (CLI) | payer MEDICARE ==
--- NOTE | 2020-06-04 16:30 | MAM ---
EXAM DESCRIPTION: 3D Diagnostic, Bilateral: Digital Mammography CLINICAL HISTORY: 69 yearsFemaleABNORMAL MAMMOGRAM . Follow-up left breast heterogeneous microcalcifications. Remote family history of ovarian cancer. No family history of breast cancer. Menarche age 9. No childbirth. Menopause age 29. HRT less than 5 years ago.. Lifetime risk of developing breast cancer (Tyrer-Cuzick model) percentage is 6.1. COMPARISON: Diagnostic left digital breast tomosynthesis December 24. Diagnostic bilateral digital breast tomosynthesis and left breast ultrasound May 2019. Diagnostic left digital breast tomosynthesis and ultrasound October 2018. Diagnostic bilateral breast 2-D mammography December 2016. TECHNIQUE: Bilateral LM, CC, and MLO projection full-field images, digital mammographic tomosynthesis technique. Bilateral 2-D digital full-field MLO images. LM, CC, and MLO projections. CAD not available. FINDINGS: The breast parenchymal density pattern is: Scattered areas of fibroglandular density. No skin thickening or nipple retraction multiple calcifications in the middle and anterior third of the left breast. Vascular calcifications intermixed with fibroglandular calcifications in the left breast more than the right. No new focal, stellate mass or density, focal asymmetry , and no suspicious microcalcifications bilaterally. IMPRESSION: BI-RADS CATEGORY: 3 - PROBABLY BENIGN. RECOMMENDATIONS: FOLLOW-UP: Short interval (6-month) diagnostic digital breast tomosynthesis and 2-D mammography left. Optional directed left breast ultrasound depending on mammographic findings.. The FINDINGS and the FOLLOW-UP plan were reviewed in person with the patient after the examination. Written communication explaining the IMPRESSION and FOLLOW-UP will be mailed to the patient and referring care provider. Electronically signed by: Jeff Ridley MD 06/04/2020 4:28 PM CDT
== END ==
LOC: MAMMO 13:08
PROVIDERS: ATTEND Family Medicine
DX: R92.2 Inconclusive mammogram (principal)
CPT/HCPCS: 77066; G0279

== ENCOUNTER 2020-11-02 19:17 | Emergency (ER) | payer MEDICARE ==
[2020-11-02] MEDS ORDERED: FLUORESCEIN SODIUM OPHTH STRIP ONE (19:21)
[2020-11-02] MEDS ORDERED: TETRACAINE HCL 0.5% OPHTH SOL 1 DROP ONE (19:21)
[2020-11-02 19:34] VITALS: O2SAT 97
--- NOTE | 2020-11-02 19:53 | ED.PDOC ---
History of Present Illness - General Chief Complaint: General Stated Complaint: Eye pain Time Seen by Provider: 11/02/20 19:50 - History of Present Illness Initial Comments: PATIENT BELIEVES SHE HAS SOMETHING IN HER LEFT EYE. SHE THINKS IT MAY BE A DOG HAIR. DENIES ANY PRIOR PROBLEMS WITH THAT EYE. SHE DOES WEAR CORRECTIVE LENSES. Timing/Duration: 24 hours Severity: mild Improving Factors: nothing Worsening Factors: nothing Associated Symptoms: denies symptoms Allergies/Adverse Reactions: Allergies Latex Allergy (Verified 11/02/20 19:38) Penicillins Allergy (Verified 01/22/19 04:16) Home Medications: Ambulatory Orders Atorvastatin Calcium [Lipitor] 20 mg PO DAILY 02/15/17 Baclofen 20 mg PO PRN PRN 02/15/17 BuPROPion XL [Wellbutrin XL] 150 mg PO DAILY 02/15/17 Coenzyme Q10 (Ubidecarenone) [Coq-10] 200 mg PO DAILY 02/15/17 Coenzyme Q10 (Ubidecarenone) [Coq-10] 400 mg PO BEDTIME 02/15/17 Cranberry (Vaccinium Macrocarp [Cranberry Concentrate] 500 mg PO BEDTIME 02/15/17 Flaxseed (Linseed) [Flaxseed Oil] 1 cap PO DAILY 02/15/17 Gabapentin 300 mg PO QID 02/15/17 Ginkgo Biloba 120 mg PO BID 02/15/17 Qnkhrhucyye-Cutyzcosqjs-Rrp C- [Glucosamine Chondroitin 1] 1 cap PO BID 02/15/17 Hydrochlorothiazide 25 mg PO DAILY 02/15/17 Levothyroxine Sodium [Synthroid] 88 mcg PO DAILY 02/15/17 Lisinopril 10 mg PO BEDTIME 02/15/17 Melatonin 30 mg PO BEDTIME 02/15/17 Meloxicam 15 mg PO DAILY 02/15/17 Metoprolol Succinate [Metoprolol Succinate ER] 25 mg PO DAILY 02/15/17 Misc Natural Products [Adrenal] 80 mg PO DAILY 02/15/17 Nitroglycerin 0.4 mg Tab [Nitrostat] 0.4 mg SL PRN PRN 02/15/17 Phenytoin Sodium Extended 100 mg PO PRN PRN 02/15/17 Potassium Chloride [K-Tab] 10 meq PO DAILY 02/15/17 Pregabalin [Lyrica] 50 mg PO DAILY@0700 02/15/17 Primidone 100 mg PO BEDTIME 02/15/17 Progesterone Micronized [Progesterone] 100 mg PO DAILY 02/15/17 Spironolactone 100 mg PO DAILY 02/15/17 Tapentadol HCl [Nucynta ER] 100 mg PO BID 02/15/17 Tapentadol HCl [Nucynta] 50 mg PO PRN PRN 02/15/17 Thyroid [Nature-Throid] 81.25 mg PO DAILY 02/15/17 Valerian (Valeriana Officinali [Valerian Root Plus] 3 cap PO BEDTIME 02/15/17 Ketorolac Tromethamine (Ophth) [Acular] 1 drop OP QID 10 Days iraj 11/02/20 Review of Systems - Review of Systems Constitutional: States: no symptoms reported EENTM: States: see HPI Respiratory: States: no symptoms reported Cardiology: States: no symptoms reported Gastrointestinal/Abdominal: States: no symptoms reported Genitourinary: States: no symptoms reported Past Medical History (General) - Patient Medical History Hx Seizures: Yes Hx Stroke: No Hx Dementia: No Hx Asthma: No Hx of COPD: No Hx Cardiac Disorders: No Hx Congestive Heart Failure: No Hx Pacemaker: No Hx Hypertension: Yes Hx Thyroid Disease: No Hx Diabetes: No Hx Gastroesophageal Reflux: No Hx Renal Disease: No Hx Cancer: No Hx of HIV: No Hx Hepatitis C: No Hx MRSA: No Surgical History: appendectomy, cholecystectomy, Hysterectomy - Vaccination History Hx Tetanus, Diphtheria Vaccination: No Hx Influenza Vaccination: No Hx Pneumococcal Vaccination: No - Social History Hx Tobacco Use: No Hx Chewing Tobacco Use: No Hx Alcohol Use: Yes Hx Substance Use: No Hx Substance Use Treatment: No Hx Depression: No Feels Threatened In Home Enviroment: No Feels Threatened In a Relationship: No Hx Physical Abuse: No Hx Emotional Abuse: No Hx Suspected Abuse: No - Female History Patient is a Female of Child Bearing Age (10 -59 yrs old): No - Triage Comment ED Triage Comment: The patient walked from the ER waiting room into ER bed 1 and was placed in a position of comfort on the bed sitting on the edge of the bed. She was alert and oriented times 4 and complained of pain and discomfort in her left eye. She had noted redness to the left eye and the eye was watering. She denied blurred vission and had no other noted compliants at the time of assessment. 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 , bilateral normal, bilateral abnormal EOM, bilateral abnormal pupil Ears, Nose, Throat: hearing grossly normal Respiratory: no respiratory distress Neurologic: alert, normal mood/affect, oriented x 3 Skin Exam: normal color, warm/dry Departure - Departure Clinical Impression: Conjunctivitis Qualifiers: Conjunctivitis type: unspecified Laterality: left Qualified Code(s): H10.9 - Unspecified conjunctivitis Disposition: Discharge to Home or Self Care Departure Forms: ED Discharge - Pt. Copy, Patient Portal Self Enrollment Referrals: FLORENCE SETH MD [Primary Care Provider] - 1-2 Weeks Prescriptions: Ketorolac Tromethamine (Ophth) [Acular] 1 drop OP QID 10 Days iraj Home Medications: Ambulatory Orders Atorvastatin Calcium [Lipitor] 20 mg PO DAILY 02/15/17 Baclofen 20 mg PO PRN PRN 02/15/17 BuPROPion XL [Wellbutrin XL] 150 mg PO DAILY 02/15/17 Coenzyme Q10 (Ubidecarenone) [Coq-10] 200 mg PO DAILY 02/15/17 Coenzyme Q10 (Ubidecarenone) [Coq-10] 400 mg PO BEDTIME 02/15/17 Cranberry (Vaccinium Macrocarp [Cranberry Concentrate] 500 mg PO BEDTIME 02/15/17 Flaxseed (Linseed) [Flaxseed Oil] 1 cap PO DAILY 02/15/17 Gabapentin 300 mg PO QID 02/15/17 Ginkgo Biloba 120 mg PO BID 02/15/17 Enbprhkutwd-Bebwepnbcyf-Rec C- [Glucosamine Chondroitin 1] 1 cap PO BID 02/15/17 Hydrochlorothiazide 25 mg PO DAILY 02/15/17 Levothyroxine Sodium [Synthroid] 88 mcg PO DAILY 02/15/17 Lisinopril 10 mg PO BEDTIME 02/15/17 Melatonin 30 mg PO BEDTIME 02/15/17 Meloxicam 15 mg PO DAILY 02/15/17 Metoprolol Succinate [Metoprolol Succinate ER] 25 mg PO DAILY 02/15/17 Misc Natural Products [Adrenal] 80 mg PO DAILY 02/15/17 Nitroglycerin 0.4 mg Tab [Nitrostat] 0.4 mg SL PRN PRN 02/15/17 Phenytoin Sodium Extended 100 mg PO PRN PRN 02/15/17 Potassium Chloride [K-Tab] 10 meq PO DAILY 02/15/17 Pregabalin [Lyrica] 50 mg PO DAILY@0700 02/15/17 Primidone 100 mg PO BEDTIME 02/15/17 Progesterone Micronized [Progesterone] 100 mg PO DAILY 02/15/17 Spironolactone 100 mg PO DAILY 02/15/17 Tapentadol HCl [Nucynta ER] 100 mg PO BID 02/15/17 Tapentadol HCl [Nucynta] 50 mg PO PRN PRN 02/15/17 Thyroid [Nature-Throid] 81.25 mg PO DAILY 02/15/17 Valerian (Valeriana Officinali [Valerian Root Plus] 3 cap PO BEDTIME 02/15/17 Ketorolac Tromethamine (Ophth) [Acular] 1 drop OP QID 10 Days iraj 11/02/20
[2020-11-02 20:08] VITALS: BP 132/78; TEMP 97.8
== END 2020-11-02 20:00 | disposition home or self-care (01) ==
LOC: ER 19:17
DX: H10.9 Unspecified conjunctivitis (principal); I10 Essential (primary) hypertension; R56.9 Unspecified convulsions; Z79.899 Other long term (current) drug therapy; Z91.040 Latex allergy status; Z88.0 Allergy status to penicillin